=== PATIENT | female | born 2005 | race Hispanic/Latino ===

== ENCOUNTER 2024-12-30 14:56 | Emergency (ER) | payer OTHER, SELFPAY ==
--- NOTE | ~2024-12-30 | US_ITS ---
US axilla 12/30/2024 16:29 Indication: Bilateral axillary pain Procedure: High-resolution ultrasound of the axilla bilaterally Comparison: No prior studies for comparison. Findings: There are mildly enlarged right axillary lymph nodes with the largest measuring 2.3 cm with effacement of the fatty hilum, likely reactive lymph node. There are normal-appearing left axillary lymph nodes with normal fatty hilum. No abnormal fluid collections. Impression: 1: Bilateral axillary lymph nodes with enlarged right axillary lymph nodes with effacement of the fatty hilum, largest measuring 2.3 cm. These are likely benign reactive lymph nodes. Recommend follow-up ultrasound in 6 months. BI-RADS CATEGORY 3-PROBABLY BENIGN FINDING RECOMMENDATION: 6 month follow up recommended. Reviewed, dictated and finalized at location [facility] Impression: 1: Bilateral axillary lymph nodes with enlarged right axillary lymph nodes with effacement of the fatty hilum, largest measuring 2.3 cm. These are likely waldemar gn reactive lymph nodes. Recommend follow-up ultrasound in 6 months. BI-RADS CATEGORY 3-PROBABLY BENIGN FINDING RECOMMENDATION: 6 month follow up recommended.
[2024-12-30 14:59] VITALS: BP 104/51; PULSE 78; RESP 18; TEMP 36.6; O2SAT 100
--- NOTE | 2024-12-30 15:38 | ED.GENADULT ---
HPI - General Adult General Chief complaint: Unspecified Stated complaint: pain in armpit Time Seen by Provider: 12/30/24 15:34 History of Present Illness HPI narrative: Since delivery, has had pain to underarm; ongoing for 4 months. Under both arms, worse under L undearm than R. No f/c, n/v. No pain elsewhere or to breasts. No weight loss or night sweats. Related Data Allergies Allergy/AdvReac Type Severity Reaction Status Date / Time No Known Allergies Allergy Verified 12/30/24 15:02 Review of Systems Review of Systems: All systems reviewed & are unremarkable except as noted in HPI and below Exam Narrative: EXAMINATION OF ORGAN SYSTEMS/BODY AREAS: Constitutional: Vital signs per nursing GENERAL:[No acute distress, non-toxic appearing.] HEAD: Normal with no signs of head trauma. EYES: EOMI, conjunctiva normal ENT: Hearing grossly intact LUNGS: Nonlabored breathing. HEART: [Regular rate and rhythm] ABD: [Soft], [nontender to palpation] EXT: Normal range of motion; no significant swelling/tenderness/induration with either axilla; no obvious lymphadenopathy SKIN: [No rashes or lesions.] NEURO: [Alert and oriented x 3. No gross focal sensory or strength deficits.] PSYCH: Normal affect Course Vital Signs Vital signs: Vital Signs Temperature 97.9 F 12/30/24 14:59 Pulse Rate 78 12/30/24 14:59 Respiratory Rate 18 12/30/24 14:59 Blood Pressure 104/51 L 12/30/24 14:59 Pulse Oximetry 100 12/30/24 14:59 Oxygen Delivery Room Air 12/30/24 14:59 Temperature 97.9 F 12/30/24 14:59 Pulse Rate 78 12/30/24 14:59 Respiratory Rate 18 12/30/24 14:59 Blood Pressure 104/51 L 12/30/24 14:59 Pulse Oximetry 100 12/30/24 14:59 Oxygen Delivery Room Air 12/30/24 14:59 Medical Decision Making [facility] Narrative Medical decision making narrative: Patient presenting with bilateral axilla pain for 4 months. No infectious symptoms, no B symptoms, and on exam I do not feel any obvious induration, without adenopathy or anything else out of the ordinary. She has also no tenderness to her breasts. Discussed with patient I am not sure what is going on, but we can get an ultrasound here and have follow-up with primary care. Patient agreeable to this plan. US showing some reactive lymphadenopathy to the R axilla; otherwise L is normal appearing; recommendation for f/u in 6months. D/w patient the findings. Intrepretor used throughout the exchange. Vital Signs Vital Signs: Vital Signs Temperature 97.9 F 12/30/24 14:59 Pulse Rate 78 12/30/24 14:59 Respiratory Rate 18 12/30/24 14:59 Blood Pressure 104/51 L 12/30/24 14:59 Pulse Oximetry 100 12/30/24 14:59 Oxygen Delivery Room Air 12/30/24 14:59 Temperature 97.9 F 12/30/24 14:59 Pulse Rate 78 12/30/24 14:59 Respiratory Rate 18 12/30/24 14:59 Blood Pressure 104/51 L 12/30/24 14:59 Pulse Oximetry 100 12/30/24 14:59 Oxygen Delivery Room Air 12/30/24 14:59 Discharge Plan Discharge Clinical Impression: Axillary pain Patient Disposition: Home Condition: Stable Instructions: Lymphadenopathy (ED) Additional Instructions: Please follow up with your doctor; you can always return for any further issues. Patient Language: Citizen Of [place] Follow-up/Referrals: PHYSICIAN,ASSISTANT COOK [Non-Staff, Internal Medicine]
== END 2024-12-30 17:47 | disposition home or self-care (01) ==
PROVIDERS: Emergency Provider Emergency Medicine; PCP Pediatrics
DX: M79.622 Pain in left upper arm (principal); M79.621 Pain in right upper arm; R59.1 Generalized enlarged lymph nodes
CPT/HCPCS: 76882; 99284